=== PATIENT | male | born 1995 ===

== ENCOUNTER → 2022-08-13 | Outpatient (CLI) | payer OTHER ==
[2022-08-16 04:07] LABS: CHLAMYDIA TRACHOMATIS, NAA Negative (Negative)
[2022-08-17 05:09] LABS: HIV AB/P24 AG SCREEN Non Reactive (Non Reactive)
[2022-08-18 05:12] LABS: HBSAG SCREEN Negative (Negative); HCV AB Non Reactive (Non Reactive); HEP A AB, IGM Negative (Negative); HEP B CORE AB, TOT Negative (Negative)
== END | disposition home or self-care (01) ==
LOC: LAB 18:50 → LAB SHORT 18:50
PROVIDERS: Chiropractor
DX: Z72.51 High risk heterosexual behavior (principal)
CPT/HCPCS: 86592; 86695; 86696; 86704; 86708; 86803; 87340; 87389; 87491; 87591